=== PATIENT | female | born 1955 | race Two or more races ===

== ENCOUNTER 2016-11-17 11:42 | Day surgery (SDC) | payer OTHER ==
[~2016-11-17] VITALS: Ht 160 cm; Wt 60.5 kg
[2016-11-17] MEDS ORDERED: ONDA8TAB83 PO (13:36)
[2016-11-17] MEDS ORDERED: DICL50TA2 PO (13:36)
[2016-11-17] MEDS ORDERED: AMOX250C PO (13:36)
[2016-11-17] MEDS ORDERED: METH750T2 PO (13:36)
[2016-11-17] MEDS ORDERED: BENA10TA48 PO (13:36)
[2016-11-17] MEDS ORDERED: IBUP-1542 PO (13:36)
[2016-11-17 13:40] VITALS: Ht 160 cm; Wt 60.5 kg
[2016-11-17 13:56] VITALS: BP 140/78; PULSE 69; RESP 12
[2016-11-17] MEDS ORDERED: FENTAnyl 50 MCG/ML VIAL ONE (14:52)
[2016-11-17] MEDS ORDERED: MIDAZOLAM 1 MG/ML 2 ML INJ ONE (14:52)
[2016-11-17 15:15] VITALS: BP 139/85; PULSE 69; RESP 18
--- NOTE | 2016-11-18 01:54 | GILP ---
DATE OF PROCEDURE: PREOPERATIVE DIAGNOSIS: Screening colonoscopy. PROCEDURE DONE: Colonoscopy, biopsy, polyp removal of 2 polyps in the cecum. POSTOPERATIVE DIAGNOSES: 1. Two 2 mm polyps in the cecum. 2. Melanosis coli. DESCRIPTION OF PROCEDURE: The patient was put in left lateral decubitus after obtaining informed co nsent, was sedated, monitored on oximetry, EKG, blood pressure. She was given 2 mg IV Versed and 50 mcg of fentanyl. Then I advanced the Olympus video colonoscope all the way to cecum. Appendiceal opening and ileocec al valve identified. Two small polyps noted in the cecum. They were less than 2 mm to 3 mm. They were biopsied and removed by biopsy forceps completely. Scope was withdrawn slowly examining the re st of the colon. Melanosis coli noted, moderate on the right side, mild on the left side. Occasion al diverticula noted in the left side. In the rectum including retroflexion was unremarkable. Upon removal of scope, patient had no complication. Plan will be to await for biopsy report. Repeat colonoscopy in 2 to 3 years. Follow up as outpatie nt. Dictated By: YOANNA CHEN Conf#: [id number] DID#: [id number] CC: Nick Lundy;*EndCC*
== END 2016-11-17 15:27 | disposition home or self-care (01) ==
LOC: GIL 11:42
PROVIDERS: ATTEND Internal Medicine
DX: Z12.11 Encounter for screening for malignant neoplasm of colon (principal); D12.0 Benign neoplasm of cecum; K63.89 Other specified diseases of intestine
CPT/HCPCS: 45380; 88305; J2250; J3010